=== PATIENT | male | born 1975 | race Caucasian/White ===

== ENCOUNTER 2025-03-20 07:15 | Outpatient (CLI) | payer OTHER, SELFPAY ==
--- NOTE | ~2025-03-20 | PE_ITS ---
EXAMINATION: PET_PETPSMAST_PT DATE: 03/20/2025 09:51 INDICATION: Prostate cancer TECHNIQUE: 5.926 mCi of Illucix Ga-[id number]) was administered i.v. Low dose computed tomography (CT) images were acquired from the base of the brain to the base of the brain to the proximal thighs for attenuation correction and anatomic localization. Positron emission tomography (PET) images were acquired in the same distribution beginning 67 minutes after injection. Images including fused PET/CT images were reconstructed in axial, coronal, and sagittal planes. Automated exposure control technique was employed. The dose-length product was 1252.40mGy-cm. COMPARISON: None FINDINGS: Head/neck: Typical pattern of symmetric physiologic increased activity in the lacrimal, parotid and submandibular glands as well as along the mucosa of the nasal and oral cavities, pharynx and hypopharynx. No pathologically enlarged cervical lymphadenopathy or suspicious foci of increased uptake in the visualized head or neck. Chest: Calcified left lower lobe nodule consistent with old granulomatous disease. No other suspicious pulmonary nodules, pneumonia, pulmonary edema or pleural effusion. Cardiomegaly. No pericardial effusion. Thoracic aorta is normal in caliber. No pathologically enlarged or PSMA avid thoracic lymphadenopathy. Abdomen/pelvis/proximal thighs: Physiologic renal accumulation and excretion of activity in the kidneys, bladder and along portions of ureters. Minimal prostatomegaly measuring 3.7 x 3.6 cm. There is a small region of relative to not absolute increased PSMA activity with maximal SUV of 3.2 at the right posterior aspect of the prostate which likely represents degenerative the reported primary prostate cancer. Normal degree and slightly heterogenous pattern of increased uptake throughout the liver and spleen without radiologic correlate or dominant PSMA avid lesion. The gallbladder, pancreas and bilateral adrenal glands are normal. Moderate uptake scattered throughout the bowels with typical duodenal and proximal jejunal predominance and without radiologic correlate, also likely physiologic. Normal appendix. No other abnormal foci of increased uptake or pathologically enlarged lymphadenopathy in the abdomen, pelvis or proximal thighs. Musculoskeletal: Mild scattered degenerative skeletal changes in the spine, shoulders and pelvis. No suspicious lytic, blastic or abnormally PSMA avid bone lesions. IMPRESSION: 1. Subtle asymmetric minimal increased activity at the right posterior aspect of the minimally enlarged prostate which likely represents the site of the reported primary prostate cancer. Evident metastatic disease. Reviewed, dictated and finalized at location A. [facility] IMPRESSION: 1. Subtle asymmetric minimal increased activity at the right posterior aspect o f the minimally enlarged prostate which likely represents the site of the repor lillie primary prostate cancer. Evident metastatic disease.
== END 2025-03-20 07:16 | disposition home or self-care (01) ==
PROVIDERS: PCP Hospitalist; Visit Provider Urology
DX: N40.0 Benign prostatic hyperplasia without lower urinary tract symptoms (principal); Z19.1 Hormone sensitive malignancy status
CPT/HCPCS: 78815; A9596